=== PATIENT | female | born 1990 | race African-American/Black ===

== ENCOUNTER 2017-06-15 19:59 | Emergency (ER) | payer OTHER, BC ==
[2017-06-15 20:22] VITALS: BP 126/77; PULSE 60; TEMP 98.2; BMI 66.7
[2017-06-15] MEDS ORDERED: KETOROLAC TROMETHAMINE 30 MG/1 ML VIAL IM ONE (20:25)
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
[2017-06-15] MEDS ORDERED: KETOROLAC TROMETHAMINE 30 MG/1 ML VIAL ONE (21:34)
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
== END 2017-06-15 21:48 | disposition home or self-care (01) ==
LOC: JERFT 19:59
DX: S16.1XXA Strain of muscle, fascia and tendon at neck level, initial encounter (principal); V43.52XA Car driver injured in collision with other type car in traffic accident, initial encounter; Y92.414 Local residential or business street as the place of occurrence of the external cause; Y93.89 Activity, other specified; Y99.8 Other external cause status
CPT/HCPCS: 99281-25

== ENCOUNTER 2017-09-21 18:45 | Emergency (ER) | payer OTHER ==
--- NOTE | 2017-09-21 19:06 | PDOC ---
Rapid Medical Evaluation Chief Complaint: Wound Time Seen by Provider: 09/21/17 19:01 Medical Evaluation: Allergies Allergy/AdvReac Type Severity Reaction Status Date / Time No Known Allergies Allergy Verified 09/21/17 18:59 09/21/17 19:03 I have performed a brief in-person evaluation of this patient. The patient presents with a chief complaint of: L 3rd finger cellulitis w/ ? streaking up arm x 2 days. Possible insect bite. No trauma otherwise. No f/c Pertinent physical exam findings:swelling w/ erythema to L 3rd digit extending into hand/wrist/forearm I have ordered the following:labs/xr The patient will proceed to the ED for further evaluation.
[2017-09-21 19:08] VITALS: TEMP 98; BMI 28.2
[2017-09-21 19:55] LABS: BASO % 0.5 % (0-2.0); EOS % 3.1 % (0-4.5); HEMATOCRIT 36.9 % (32.4-45.2); HEMOGLOBIN 12.5 GM/dL (10.7-15.3); MCH 31.4 pg (25.7-33.7); MEAN CELL VOLUME 92.5 fl (80-96); MEAN PLT VOLUME 8.5 fl (7.5-11.1); MONO % 8.7 % (3.8-10.2); NEUT % 36.7 % (42.8-82.8); PLATELET COUNT 205 K/MM3 (134-434); RBC 3.99 M/mm3 (3.60-5.2); RDW 14.9 % (11.6-15.6)
[2017-09-21] MEDS ORDERED: VANCOMYCIN 1,000 MG in DEXTROSE 5%-WATER - 250 ML IVPB ONE (20:11)
[2017-09-21] MEDS ORDERED: PIPERACILLIN/TAZOB 4.5 GM/100 ML PRE-DOCKED IVPB ONE (20:11)
[2017-09-21] MEDS ORDERED: VANCOMYCIN 1 GRAM (PRE-DOCKED) 1,000 MG/250 ML BAG IVPB ONE (20:17)
[2017-09-21] MEDS ORDERED: PIPERACILLIN/TAZOB 3.375 GM 3.375 GM/50 ML BAG IVPB ONE (20:17)
[2017-09-21 20:22] LABS: ALK PHOS 52 U/L (45-117); ANION GAP 7 (8-16); BILIRUBIN,TOTAL 0.4 mg/dL (0.2-1.0); BLOOD UREA NITROGEN 10 mg/dL (7-18); CALCIUM 8.8 mg/dL (8.5-10.1); CHLORIDE 106 mmol/L (98-107); CO2 29 mmol/L (21-32); CREATININE 0.7 mg/dL (0.55-1.02); GLUCOSE,RANDOM 88 mg/dL (74-106); POTASSIUM 3.8 mmol/L (3.5-5.1); SGOT/AST 17 U/L (15-37); SGPT/ALT 18 U/L (12-78); SODIUM 142 mmol/L (136-145); TOT PROT 7.5 g/dl (6.4-8.2)
--- NOTE | 2017-09-21 21:30 | PDOC ---
History of Present Illness <AliceRosa Alvarado - Last Filed: 09/21/17 22:09> - History of Present Illness Initial Comments: 09/21/17 21:31 The patient is a 27 F, with PMHx of asthma, who presents with swelling of 3rd digit of left hand since yesterday. At 2am yesterday she woke up with pain and swelling to her left 3rd digit. She continued her day and that pain and swelling progressively increased. The next day her symptoms continued and she noticed that streaking developed up the dorsal side of her forearm. She took 3 ibuprofen, iced the area, and elevated her arm with no pain relief. She describes her pain as burning, does not radiate, nothing makes it better, overuse makes it worse. She denies numbness or tingling. She denies fever, chills, shortness of breath, chest pain. She denies trauma. She went to urgent care prior to arrival of the ER however she was not given any antibiotics and was referred to the ER. Social Hx: denies tobacco, EtOH use, and recreational drug use. Family Hx: non-contributory Allergies: NKDA <Teresa Spears - Last Filed: 09/21/17 22:22> - General Chief Complaint: Wound Stated Complaint: BITE WOUND Time Seen by Provider: 09/21/17 19:01 Past History - Past Medical History Asthma: Yes COPD: No - Immunization History Immunization Up to Date: Yes - Suicide/Smoking/Psychosocial Hx Smoking Status: No Smoking History: Never smoked Have you smoked in the past 12 months: No Number of Cigarettes Smoked Daily: 0 Information on smoking cessation initiated: No Hx Alcohol Use: No Drug/Substance Use Hx: No Substance Use Type: None <Rosa Jenkins - Last Filed: 09/21/17 22:09> <Teresa Spears - Last Filed: 09/21/17 22:22> - Past Medical History Allergies/Adverse Reactions: Allergies Allergy/AdvReac Type Severity Reaction Status Date / Time No Known Allergies Allergy Verified 09/21/17 18:59 Home Medications: Ambulatory Orders Cephalexin Monohydrate [Keflex -] 500 mg PO Q8H 7 Days #21 capsule 09/21/17 Fluconazole 200 mg PO ONCE PRN #1 tablet 09/21/17 Sulfamethoxazole/Trimethoprim [Bactrim Ds Tablet] 1 each PO BID 7 Days #14 tablet 09/21/17 Review of Systems - Review of Systems Comments:: 09/21/17 21:34 See HPI. All other systems reviewed and unremarkable <Teresa Spears - Last Filed: 09/21/17 22:22> *Physical Exam - Vital Signs Last Vital Signs Temp Pulse Resp BP Pulse Ox 98.0 F 56 L 16 140/88 100 09/21/17 19:00 09/21/17 19:00 09/21/17 19:00 09/21/17 19:00 09/21/17 19:00 <Rosa Jenkins - Last Filed: 09/21/17 22:09> - Vital Signs Last Vital Signs Temp Pulse Resp BP Pulse Ox 98.0 F 56 L 16 140/88 100 09/21/17 19:00 09/21/17 19:00 09/21/17 19:00 09/21/17 19:00 09/21/17 19:00 - Physical Exam Comments: 09/21/17 21:34 GENERAL: Awake, alert, and fully oriented, in no acute distress HAND: 2+ pulses radial/ulnar , FROM all digits, cap refill, sensation intact. Swelling, erythema, minimal warmth to dorsum, mainly 3rd digit. of left hand. + Lymphangitic streaking to the left elbow. No palpable lymph nodes in elbow/ axilla. No fluctuance. No palmar involvemnet, no tenderness over flexor sheath. <Teresa Spears - Last Filed: 09/21/17 22:22> ED Treatment Course - LABORATORY CBC & Chemistry Diagram: 09/21/17 19:43 09/21/17 19:43 - ADDITIONAL ORDERS Additional order review: Laboratory Results 09/21/17 09/21/17 19:43 19:43 Sodium 142 Potassium 3.8 Chloride 106 Carbon Dioxide 29 Anion Gap 7 L BUN 10 Creatinine 0.7 Creat Clearance w eGFR > 60 Random Glucose 88 Calcium 8.8 Total Bilirubin 0.4 D AST 17 ALT 18 Alkaline Phosphatase 52 Total Protein 7.5 Albumin 4.0 Serum , Qual Negative 09/21/17 19:43 RBC 3.99 MCV 92.5 MCHC 34.0 RDW 14.9 D MPV 8.5 Neutrophils % 36.7 L Lymphocytes % 51.0 H Monocytes % 8.7 Eosinophils % 3.1 Basophils % 0.5 - RADIOLOGY Radiology Studies Ordered: Category Date Time Status HAND- LEFT [RAD] Stat Radiology 09/21/17 20:11 Ordered - Medications Given in the ED: ED Medications Discontinued Medications Generic Name Dose Route Start Last Admin Trade Name Nurys PRN Reason Stop Dose Admin Vancomycin HCl 1,000 mg/ 250 mls @ 250 mls/hr 09/21/17 20:11 09/21/17 20:30 Dextrose IVPB 09/21/17 21:10 250 mls/hr ONCE ONE Administration Protocol Piperacillin Sod/Tazobactam Sod 4.5 gm 09/21/17 20:11 09/21/17 20:10 Zosyn 4.5gm Ivpb (Pre-Docked) IVPB 09/21/17 20:12 4.5 gm ONCE ONE Administration <Rosa Jenkins - Last Filed: 09/21/17 22:09> - LABORATORY CBC & Chemistry Diagram: 09/21/17 19:43 09/21/17 19:43 - ADDITIONAL ORDERS Additional order review: Laboratory Results 09/21/17 09/21/17 19:43 19:43 Sodium 142 Potassium 3.8 Chloride 106 Carbon Dioxide 29 Anion Gap 7 L BUN 10 Creatinine 0.7 Creat Clearance w eGFR > 60 Random Glucose 88 Calcium 8.8 Total Bilirubin 0.4 D AST 17 ALT 18 Alkaline Phosphatase 52 Total Protein 7.5 Albumin 4.0 Serum , Qual Negative 09/21/17 19:43 RBC 3.99 MCV 92.5 MCHC 34.0 RDW 14.9 D MPV 8.5 Neutrophils % 36.7 L Lymphocytes % 51.0 H Monocytes % 8.7 Eosinophils % 3.1 Basophils % 0.5 - Medications Given in the ED: ED Medications Discontinued Medications Generic Name Dose Route Start Last Admin Trade Name Luis Manuelq PRN Reason Stop Dose Admin Vancomycin HCl 1,000 mg/ 250 mls @ 250 mls/hr 09/21/17 20:11 09/21/17 20:30 Dextrose IVPB 09/21/17 21:10 250 mls/hr ONCE ONE Administration Protocol Piperacillin Sod/Tazobactam Sod 4.5 gm 09/21/17 20:11 09/21/17 20:10 Zosyn 4.5gm Ivpb (Pre-Docked) IVPB 09/21/17 20:12 4.5 gm ONCE ONE Administration <Teresa Spears - Last Filed: 09/21/17 22:22> Medical Decision Making - Medical Decision Making 09/21/17 21:28 27yoF pmhx of asthma only presents w/ atraumatic L hand cellulitis to extensor surface w/ + lymphangitic streaking to elbow. No evidence of involvement of flexor tendons on examination, no systemic symptoms. - labs - rads - iv abx - pt reliable for return to ER. Can trial PO abx w/ return immediately for fevers or increasing erythema. cellulitis line drawn and dated. 09/21/17 22:09 labs reviewed and unremarkable. WBC WNL. no fevers in ER. Pt states that cellulitic area is "itchy" and requested Benadryl. NO allergy to IV abx. xrays reviewed by me. No e/o foreign body or subcutaneous free air. OK for DC w/ strict return precautions. <Rosa Jenkins - Last Filed: 09/21/17 22:09> *DC/Admit/Observation/Transfer - Discharge Dispostion Admit: No <Rosa Jenkins - Last Filed: 09/21/17 22:09> - Attestations Scribe Attestion: 09/21/17 21:34 Documentation prepared by Teresa Spears, acting as medical office supervisor for Rosa Jenkins MD. <Teresa Spears - Last Filed: 09/21/17 22:22> Diagnosis at time of Disposition: Cellulitis of hand - Discharge Dispostion Disposition: HOME Condition at time of disposition: Good - Prescriptions Prescriptions: Cephalexin Monohydrate [Keflex -] 500 mg PO Q8H 7 Days #21 capsule Fluconazole 200 mg PO ONCE PRN #1 tablet PRN Reason: Yeast Infection Sulfamethoxazole/Trimethoprim [Bactrim Ds Tablet] 1 each PO BID 7 Days #14 tablet - Patient Instructions Printed Discharge Instructions: DI for Cellulitis -- Adult Additional Instructions: prescriptions have been sumitted to your pharmacy: Cefalexin Bactrim Fluconzole --> take only if you get a yeast infection. keep hand elevated to level or heart or above. Monitor redness for expansion beyond the line drawn in the ER tonight. If your redness is getting darker or expanding beyond the line, please return to the ER immediately for more IV antibiotics. Please return to the [facility] ER in 2 days (Sunday) for a CHECKUP to ensure that your symptoms are improving. Return to the ER earlier for: fever over 100.4 redness expanding beyond line any involvement of the palm of the hand
[2017-09-21] MEDS ORDERED: diphenhydrAMINE HCL 25 MG CAPSULE (FP) PO ONE ×2 (21:50→21:51)
[2017-09-21 23:03] VITALS: BP 127/83; PULSE 58
== END 2017-09-21 23:03 | disposition home or self-care (01) ==
LOC: JER 18:45
PROC: 3E03329 Introduction of Other Anti-infective into Peripheral Vein, Percutaneous Approach (ICD-10-PCS; principal; 2017-09-21)
PROC: 3E03329 Introduction of Other Anti-infective into Peripheral Vein, Percutaneous Approach (ICD-10-PCS; 2017-09-21)
PROC: 3E0233Z Introduction of Anti-inflammatory into Muscle, Percutaneous Approach (ICD-10-PCS; 2017-09-21)
DX: L03.114 Cellulitis of left upper limb (principal)
CPT/HCPCS: 36415; 73130-TC-LR-FY; 73140-TC-LT-FY; 80053; 84703; 85025; 99282-25

== ENCOUNTER 2018-10-05 12:29 | Emergency (ER) | payer OTHER ==
[2018-10-05 12:36] VITALS: BP 136/63; PULSE 67; TEMP 98.5; BMI 29.9
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
== END 2018-10-05 13:06 | disposition home or self-care (01) ==
LOC: JERFT 12:29
DX: S89.81XA Other specified injuries of right lower leg, initial encounter (principal); X50.1XXA Overexertion from prolonged static or awkward postures, initial encounter; Y93.79 Activity, other specified sports and athletics; Y92.838 Other recreation area as the place of occurrence of the external cause; Y99.8 Other external cause status
CPT/HCPCS: 99281-25

== ENCOUNTER 2018-11-23 09:05 | Emergency (ER) | payer OTHER ==
[2018-11-23 09:12] VITALS: BP 134/89; PULSE 65; TEMP 98.1; BMI 29.9
[2018-11-23] MEDS ORDERED: ERYTHROMYCIN 0.5% OPHTHALMIC OINTMENT 3.5 GM TUBE OS ONE (09:43)
[2018-11-23] MEDS ORDERED: ERYTHROMYCIN 0.5% OPHTHALMIC OINTMENT 3.5 GM TUBE ONE (09:46)
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
== END 2018-11-23 10:03 | disposition home or self-care (01) ==
LOC: JERFT 09:05
DX: H10.213 Acute toxic conjunctivitis, bilateral (principal); J45.909 Unspecified asthma, uncomplicated
CPT/HCPCS: 99281-25